=== PATIENT | female | born 1980 | race Caucasian/White ===

== ENCOUNTER 2019-01-31 17:59 | Inpatient (IN) | payer BC ==
[2019-01-31] MEDS ORDERED: Dinoprostone* 10 MG VAG.SUPP VAGINAL ONE (19:16)
--- NOTE | 2019-01-31 19:26 | PN ---
L&D Outpatient: Visit - Reproductive Information Estimated Due Date: 01/27/19 Gestational Age: 40 Weeks and 4 Days : 1 Para: 0 - Reason for Visit Visit Reason: cervidil for ripening - Antepartal Records Antepartal Record: Reviewed, Complicated by: - ivf - Patient History Patient History Significant: No Review of Systems Constitutional: Comfortable Genitourinary: No Bleeding, No Leaking Fluid Movement: Normal L&D Outpatient: Exam - Cervical Exam Cervical Exam: 1 cm 75% -1 - Abdominal Exam Abdomen Exam: Non-Tender - Membranes Membrane Status: Intact - Ultrasound/Biophysical Profile Ultrasound Status: Not Done EFM Findings - External Monitor Findings Baseline Heart Rate: 130 External Monitor Findings: Accelerations Present, Variability Moderate Contractions: None L&D Outpatient: Asses/Plan Assessment: posat term ivf for induction/ ripening - Discharge Diagnosis Discharge Diagnosis: Post Dates Plan: Other - cervidil this evening
--- NOTE | 2019-01-31 19:46 | HP ---
General Information - Reason for Visit cervidil for post dates - General Information Maternal Age: 38 Grav: 1 Para: 0 SAB: 0 IEA: 0 Estimated Due Date: 01/27/19 Determined By: LMP Maternal Blood Type and Rh: O Positive - Results this Serology/RPR Result: Non-Reactive Rubella Result: Immune HBsAg Result: Negative HIV Result: Negative GBS Culture Result: Positive Past Medical History Pertinent Past Medical History: See Records Pertinent Past Surgical History: None Pertinent Family History: Non-Contributory - Antepartal Records Antepartal Records: Reviewed, Complicated by: - ivf /post dates Review of Systems Constitutional: Comfortable Genitourinary: No Bleeding, No Leaking Fluid Musculoskeletal: No Complaint Neurological: No Headache Movement: Normal Exam Allergies/Adverse Reactions: Allergies No Known Allergies Allergy (Verified 12/12/14 13:13) - Measurements Height: 5 ft 7 in Weight: 169 lb Weight in lbs: 169.302829 Body Mass Index (BMI): 26.4 Pre- Weight: 135 lb Weight Gained This : 34 lbs and 0 ozs - Exam Breast: Breast Exam Deferred Extremities: No Edema Heart: Normal Rhythm/Heart Sounds HEENT: No Significant Findings Lungs: Clear Bilaterally Rectal: Rectal Exam Deferred Reflexes: DTR 2+ Targeted Exam Findings See L&D Outpatient Visit Provider Note for Findings: Yes Estimated Weight: 8 lbs Cervical Exam: 1cm Effacement: 70% Station: -1 Presenting Part: Vertex Membrane Status: Intact EFM Findings - External Monitor Findings Baseline Heart Rate: 130 External Monitor Findings: Accelerations Present, Variability Moderate Contractions: None Assessment/Plan - Obstetrical Risk Factors Obstetrical Risk Factors: Post-Dates - Plan Plan: Cervical Ripening
[2019-02-01] MEDS ORDERED: Penicillin G Potassium IV* 5,000,000 UNITS in NS 0.9% 100 ML* 100 ML IVPB ONE (08:14)
[2019-02-01 08:57] LABS: Hematocrit 39 % (35-47); Mean Corpuscular HGB Conc 33 g/dl (31-36); Mean Corpuscular Hemoglobin 30 pg (27-31); Mean Corpuscular Volume 89 fL (80-97); Mean Platelet Volume 8.9 fL (7.4-10.4); Platelet Count 216 10^3/ul (150-450); Red Blood Count 4.38 10^6/ul (4.00-5.40); Red Cell Distribution Width 13 % (10.5-15)
[2019-02-01] MEDS ORDERED: Oxytocin in LR* 20 UNITS/1,000 ML BAG IVPB SCH ×2 (09:00→23:00)
[2019-02-01 11:39] LABS: ABS Basophils 0.1 10^3/ul (0-0.2); ABS Eosinophils 0.1 10^3/ul (0-0.6); ABS Lymphocytes 1.8 10^3/ul (1.0-4.8); ABS Nucleated RBC 0 10^3/ul; Eosinophil % 1.1 %; Lymphocyte % 13.7 %; Nucleated Red Blood Cells % 0
[2019-02-01] MEDS ORDERED: OBEPIDURAL* 250 ML EPIDURAL ONE (12:37)
[2019-02-01] MEDS ORDERED: fentaNYL* 50 MCG/ML 2 ML VIAL (100 MCG VIAL) ONE (12:55)
[2019-02-01] MEDS ORDERED: Sodium Citrate/Citric Acid* 15 ML UDC PO PRN (13:17)
[2019-02-01] MEDS ORDERED: Phenylephrine IV* 40 MCG/ML 10 ML SYRINGE IV PUSH PRN ×2 (13:17)
[2019-02-01] MEDS ORDERED: Lactated Ringers 1000 ML Bag* 1,000 ML IV ONE (13:17)
[2019-02-01] MEDS ORDERED: Famotidine TAB* 20 MG PO PRN (13:17)
[2019-02-01] MEDS ORDERED: OBEPIDURAL* 250 ML EPIDURAL SCH (14:00)
[2019-02-01] MEDS ORDERED: Lactated Ringers 1000 ML Bag* 1,000 ML IV SCH ×2 (14:00→23:00)
[2019-02-01] MEDS: Penicillin G Potassium IV* 2,500,000 UNITS in NS 0.9% 100 ML* 100 ML IVPB SCH ×3 (14:16→21:52)
[2019-02-01] MEDS ORDERED: Acetaminophen TAB* 325 MG PO PRN (22:27)
[2019-02-01] MEDS ORDERED: Dibucaine 1% 28.35 GM TUBE PR PRN (22:27)
[2019-02-01] MEDS ORDERED: Witch Hazel PAD* JAR TOPICAL PRN (22:27)
--- NOTE | 2019-02-01 22:37 | PROCNOTE ---
[facility] OB: Delivery Note - Delivery A Date of : 02/01/19 Time of : 21:23 [place] Sex: Female Weight at : 7 lb 12 oz Score 1 Minute: 9 Score 5 Minutes: 9 Gestational Age in Weeks and Days at Delivery: 40 Weeks and 5 Days Delivery Method: Spontaneous Vaginal Labor: Induced Did Patient attempt ?: N/A, No Previous Amniotic Fluid: Clear Estimated Blood Loss: 400 Anesthesia/Analgesia: CEI for Labor, Other Anesthesia Comment: lidocaine 1% 10 cc used Delivered By: Kely Tes - Nursery Level of Nursery: Regular/Bedside - Perineum Perineal Injury: 3rd Degree Extension - repair with 2.0 vicryl X 3/ 4.0 vicryl X 1/ stndared technique withgood approximation/ rectal exam intact Perineal Repair: By Delivering Practioner - Events Delivery Events of Note: Pitocin During Labor, Supplemental O2 to Mother, Full Course of Antibiotics
[2019-02-01] MEDS ORDERED: Lidocaine 1% INJ* 10 MG/ML 30 ML SDV ONE (22:42)
[2019-02-02] MEDS ORDERED: Docusate CAP* 100 MG ONE (00:38)
[2019-02-02] MEDS: Ibuprofen TAB* 600 MG PO PRN ×3 (00:40→16:12)
[2019-02-02 08:26] LABS: Hematocrit 32 % (35-47); Hemoglobin 10.7 g/dl (12.0-16.0); Mean Corpuscular HGB Conc 33 g/dl (31-36); Mean Corpuscular Hemoglobin 30 pg (27-31); Mean Corpuscular Volume 89 fL (80-97); Mean Platelet Volume 8.8 fL (7.4-10.4); Platelet Count 198 10^3/ul (150-450); Red Cell Distribution Width 13 % (10.5-15); White Blood Count 20.8 10^3/ul (3.5-10.8)
[2019-02-02] MEDS ORDERED: Simethicone TAB* 80 MG TAB.CHEW PO SCH (08:30)
[2019-02-02] MEDS: Docusate CAP* 100 MG PO SCH ×3 (08:50→22:31)
[2019-02-02] MEDS ORDERED: DHA PO SCH (09:00)
[2019-02-02] MEDS ORDERED: Ferrous Gluconate TAB* 324 MG TAB PO SCH (09:00)
[2019-02-02] MEDS ORDERED: Prenatal Vitamin TAB PO SCH (09:00)
[2019-02-02 09:12] LABS: ABS Basophils 0 10^3/ul (0-0.2); ABS Eosinophils 0.1 10^3/ul (0-0.6); ABS Lymphocytes 1.7 10^3/ul (1.0-4.8); ABS Monocytes 1.7 10^3/ul (0-0.8); ABS Neutrophils 17.3 10^3/ul (1.5-7.7); ABS Nucleated RBC 0 10^3/ul; Eosinophil % 0.4 %; Lymphocyte % 8.1 %; Nucleated Red Blood Cells % 0
[2019-02-03] MEDS: Ibuprofen TAB* 600 MG PO PRN (08:23)
[2019-02-03] MEDS: Docusate CAP* 100 MG PO SCH (08:24)
[2019-02-03 08:34] VITALS: BP 106/72
== END 2019-02-03 14:34 | disposition home or self-care (01) | DRG 542 ==
LOC: MCHOBOUT 17:59 → MCHOB 19:40
PROVIDERS: ADMIT Obstetrics & Gynecology; ATTEND Obstetrics & Gynecology
PROC: 10E0XZZ Delivery of Products of Conception, External Approach (ICD-10-PCS; principal; 2019-02-01)
PROC: 3E033VJ Introduction of Other Hormone into Peripheral Vein, Percutaneous Approach (ICD-10-PCS; 2019-02-01)
PROC: 10907ZC Drainage of Amniotic Fluid, Therapeutic from Products of Conception, Via Natural or Artificial Opening (ICD-10-PCS; 2019-02-01)
PROC: 0DQR0ZZ Repair Anal Sphincter, Open Approach (ICD-10-PCS; 2019-02-01)
DX: O48.0 Post-term pregnancy (principal); Z37.0 Single live birth; O70.20 Third degree perineal laceration during delivery, unspecified; O99.824 Streptococcus B carrier state complicating childbirth; Z3A.40 40 weeks gestation of pregnancy
CPT/HCPCS: 36415; 59200; 85025; 86850; 86900; 86901; A9270-GY; J2540; J3010

== ENCOUNTER 2021-10-04 07:58 | Inpatient (IN) ==
[2021-10-04] MEDS ORDERED: Lactated Ringers 1000 ml BAG 1,000 ML IV ONE ×2 (08:17→10:36)
[2021-10-04] MEDS ORDERED: Buffered Lidocaine 1% SYRIN 1 ml INTRADERM ONE (08:17)
[2021-10-04 08:44] LABS: ABS Eosinophils 0.1 10^3/ul (0-0.6); ABS Lymphocytes 1.5 10^3/ul (1.0-4.8); ABS Monocytes 1.2 10^3/ul (0-0.8); ABS Neutrophils 9.1 10^3/ul (1.5-7.7); Eosinophil % 0.7 %; Hematocrit 39 % (35-47); Lymphocyte % 12.8 %; Mean Corpuscular HGB Conc 34 g/dL (31-36); Mean Corpuscular Hemoglobin 29 pg (27-31); Mean Corpuscular Volume 87 fL (80-97); Mean Platelet Volume 9.6 fL (7.4-10.4); Platelet Count 222 10^3/uL (150-450); Red Blood Count 4.49 10^6 /uL (3.70-4.87); Red Cell Distribution Width 13 % (10-15); White Blood Count 11.9 10^3/uL (3.5-10.8)
[2021-10-04] MEDS ORDERED: Lactated Ringers 1000 ml BAG 1,000 ML IV SCH ×2 (09:00→11:00)
[2021-10-04] MEDS ORDERED: OBEPIDURAL 250 ML EPIDURAL ONE (09:01)
[2021-10-04 09:06] LABS: Urine Benzodiazepine Screen None Detected (None Detect); Urine Cannabinoids Screen None Detected (None Detect); Urine Opiates Screen None Detected (None Detect)
[2021-10-04 09:35] LABS: Rapid COVID-19 Molecular Undetected (Undetected)
[2021-10-04] MEDS ORDERED: Lactated Ringers 1000 ml BAG 500 ML IV PRN ×2 (10:36)
[2021-10-04] MEDS ORDERED: Phenylephrine 40 mcg/mL 10mL (400mcg) SYRINGE IV PUSH PRN ×2 (10:36)
[2021-10-04] MEDS ORDERED: Sodium Citrate/Citric Acid LIQ 15 ML UDC PO PRN (10:36)
[2021-10-04] MEDS ORDERED: OBEPIDURAL 250 ML EPIDURAL SCH (11:00)
[2021-10-04 12:21] LABS: Urine Appearance Clear; Urine Bilirubin Negative (Negative); Urine Blood 1+ (Negative); Urine Color Yellow; Urine Glucose Negative (Negative); Urine Ketones 1+ (Negative); Urine Nitrite Negative (Negative); Urine Protein Negative (Negative); Urine Specific Gravity 1.009 (1.002-1.030); Urine Urobilinogen Negative (Negative)
[2021-10-04 12:23] LABS: Urine Amorphous Crystals Present (Absent); Urine Bacteria Absent (Absent); Urine Red Blood Cell 3+(>10/hpf) (Absent); Urine Squamous Epithelial Cell Present (Absent); Urine White Blood Cell Trace(0-5/hpf) (Absent)
[2021-10-04] MEDS ORDERED: Oxytocin in LR 20 UNITS/1,000 ML BAG IVPB ONE (12:59)
[2021-10-04] MEDS ORDERED: Dibucaine 1% OINT 28.35 GM TUBE PR PRN (14:24)
[2021-10-04] MEDS ORDERED: Witch Hazel PAD JAR TOPICAL PRN (14:24)
[2021-10-04] MEDS ORDERED: Glycerin ADULT 2.4 gm SUPP PR PRN (14:24)
[2021-10-04] MEDS ORDERED: Oxytocin in LR 20 UNITS/1,000 ML BAG IVPB SCH (15:00)
[2021-10-04] MEDS ORDERED: Lidocaine 1% VIAL 10 MG/ML VIAL ONE (18:17)
[2021-10-05 08:35] LABS: ABS Basophils 0.1 10^3/ul (0-0.2); ABS Eosinophils 0.1 10^3/ul (0-0.6); ABS Lymphocytes 1.8 10^3/ul (1.0-4.8); ABS Monocytes 0.9 10^3/ul (0-0.8); ABS Neutrophils 10.4 10^3/ul (1.5-7.7); Eosinophil % 0.6 %; Hematocrit 29 % (35-47); Hemoglobin 9.6 g/dL (12.0-16.0); Lymphocyte % 13.4 %; Mean Corpuscular HGB Conc 33 g/dL (31-36); Mean Corpuscular Hemoglobin 29 pg (27-31); Mean Corpuscular Volume 87 fL (80-97); Platelet Count 216 10^3/uL (150-450); Red Blood Count 3.37 10^6 /uL (3.70-4.87); Red Cell Distribution Width 14 % (10-15); White Blood Count 13.2 10^3/uL (3.5-10.8)
[2021-10-05 12:20] VITALS: BP 109/75
== END 2021-10-05 15:57 | disposition home or self-care (01) | DRG 560 ==
LOC: MCHOBOUT 07:58 → MCHOB 08:19
PROVIDERS: ADMIT Obstetrics & Gynecology; ATTEND Obstetrics & Gynecology